=== PATIENT | female | born 1955 | race Caucasian/White ===

== ENCOUNTER → 2016-07-29 | Outpatient (CLI) | payer BC ==
[~2016-07-29] MED LIST: AMIT25TA19 PO; ASPCH81X PO; CHOLTAB3 PO; ELQ25 PO; FERR324T PO; PRLSR20 PO; SACC250C11 PO; TRIA37.5 PO; WARF6TAB PO; [UNRECOGNIZED DRUG - CODE] PO
[2016-07-29 18:13] LABS: INR 2.1 (0.9-1.1); PROTHROMBIN TIME (PATIENT) 23.4 SECONDS (9.0-12.0)
== END | disposition home or self-care (01) ==
LOC: C.LABPBG 12:48
PROVIDERS: ATTEND Internal Medicine Geriatric Medicine
DX: Z86.711 Personal history of pulmonary embolism (principal)

== ENCOUNTER → 2016-11-03 | Outpatient (CLI) | payer BC | END | disposition home or self-care (01) | LOC: C.PAPS 13:51 | PROVIDERS: ATTEND Obstetrics & Gynecology | DX: R87.810 Cervical high risk human papillomavirus (HPV) DNA test positive (principal) ==

== ENCOUNTER → 2017-01-17 | Outpatient (CLI) | payer BC ==
[2017-01-17 18:08] LABS: URINE APPEARANCE CLOUDY (CLEAR); URINE BILIRUBIN NEG (NEG); URINE COLOR YELLOW; URINE EPITHELIAL CELL AUTO >30 /lpf (0-5); URINE NITRITE NEG (NEG); URINE PH 5.5 (4.5-7.5); URINE SPECIFIC GRAVITY 1.021 (1.000-1.030); UROBILINOGEN NEG (NEG)
[2017-01-17 18:15] LABS: MANUAL MICROSCOPIC REQUIRED? NO; REVIEW REQ? NO
== END | disposition home or self-care (01) ==
LOC: C.LABPBG 11:22
PROVIDERS: ATTEND Internal Medicine Geriatric Medicine
DX: R35.0 Frequency of micturition (principal)

== ENCOUNTER → 2017-02-10 | Outpatient (CLI) | payer BC ==
[2017-02-10 13:10] VITALS: BP 99/70; PULSE 79; TEMP 36.7; O2SAT 96
--- NOTE | 2017-02-10 15:16 | Radiation Oncology Follow-Up ---
Radiation Oncology Follow-Up Date of Visit Feb 10, 2017. Reason For Visit Annual follow-up Radiation Completion Date FINISHED 06-02-2012 Diagnosis (1) CA IN SITU BREAST Status: Resolved Onset Date: 01/24/2012 Location: right breast Stage: 0 Permanent Comment: Abnormal right breast mammogram Status post stereotactic biopsy revealing atypical ductal hyperplasia Status post bilateral partial mastectomy feeling atypical ductal hyperplasia on the left and DCIS on the right Status post bilateral reduction mammoplasty with wide excision of lumpectomy site 03/06/2012 residual DCIS 6 mm Status post completion of radiation therapy to the right breast completed 2011 received 5040 cGy 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 Rios is a 61-year-old white female who is referred here for adjuvant XRT to the right breast for DCIS. Her history dates back to October 2011 when she was found to having abnormality right breast. Biopsy turned out to be atypical ductal hyperplasia versus low-grade ductal carcinoma in situ. The patient was subsequently evaluated at [place] where the stereotactic biopsy performed at [facility] are reviewed and felt to be focal atypical ductal hyperplasia. On 01/24/2012 she had a bilateral partial mastectomies corresponding to the mammographic abnormalities. The pathology turned out to be atypical ductal hyperplasia of the left breast, negative for malignancy. Over the right breast the findings are consistent with ductal carcinoma in situ intermediate grade with tumor present at the lateral margin and less than 1 mm from the posterior and medial margins. Separate area of left nodule turned out to be once again ductal hyperplasia. The patient had a MRI of the both breasts on 02/09/2012 with the pathology revealing nodular enhancement along the margins of the surgical bed felt to be consistent with patient's known DCIS and a surgical consult was ordered. There was also nodular enhancement along the margins of the surgical bed over the left breast which was suspicious. Because of the above findings, the patient underwent bilateral reduction mammoplasties and wider excision of the lumpectomy site. This was performed on 03/06/2012 and was residual DCIS of 6 mm. The left side failed to reveal any evidence of malignancy. The patient did well postoperatively and is now seen today for opinion regarding adjuvant XRT to the right breast. She completed radiation therapy 06/02/2012. She received 5040 cGy. She did not require boost therapy due to the mammoplasty. Interim History She's been doing well over this past year. She has noticed no changes to her breast. She has noted no masses or tenderness and no change of the axilla. She 's had no swelling of her arm. She is up-to-date on mammography. She is seen regularly by her breast surgeon and has mammography in [place]. She was unable to take tamoxifen due to DVT with pulmonary emboli. She continues follow-up with medical oncology. She had a mammogram 12/14/2016. There was no mammographic evidence of malignancy. One year follow-up was recommended. BI- RADS Category 2. Allergies Coded Allergies: Penicillins (Verified Allergy, Severe, RASH, 02/05/16) Home Medications Scheduled Amitriptyline Hcl (Amitriptyline), 25 MG PO HS Apixaban (Eliquis), 2.5 MG PO BID Ergocalciferol (Vitamin D), 400 INTER.UNIT PO DAILY Ferrous Gluconate (Iron Supplement), 324 MG PO DAILY Omeprazole (Prilosec Otc *), 20 MG PO DAILY Saccharomyces Boulardii (Probiotic), 1 MG PO DAILY Toremifene Citrate (Fareston), 1 TAB PO DAILY Triamterene/Hctz (Dyazide 37.5MG/25MG), 1 TAB PO DAILY Review of Systems Gastrointestinal: Symptoms: WNL Oral: Symptoms: No Problems Respiratory: Symptoms: WNL Other Respiratory: " I have a cold " Urinary: Symptoms: WNL Comments: had a UTI a few weeks ago, finished meds OK now " Skin: Symptoms: No Problems Other Skin Symptoms: right upper arm area of erythema pt noted when changed into pt gown Breast: Right Upper Arm Measurement: 39.0 Right Mid Arm Measurement: 24.0 Right Wrist Measurement: 15.5 Left Upper Arm Measurement: 36.0 Left Mid Arm Measurement: 24.0 Left Wrist Measurement: 15.3 Arm Dominence: Right Patient Cosmetic Evaluation: Excellent Staff Cosmetic Evalaluation: Excellent Physical Exam Vital Signs Date Time Temp Pulse Resp B/P (MAP) Pulse Ox O2 Delivery O2 Flow Rate FiO2 02/10/17 13:10 36.7 79 20 99/70 96 Pain: Pain Onset: one month Pain Duration: intermet Side: Bilateral Pain Location: Abdomen Patient Pain Scale: 0 - 10 Initial Pain Intensity: 0.0 Pain Description: Sharp, Pressure Fatigue: None General Appearance: no apparent distress Eyes: normal inspection, EOMI ENT: normal ENT inspection, hearing grossly normal Neck: no adenopathy, thyroid normal Respiratory/Chest: lungs clear, no respiratory distress, no accessory muscle use Breast: Status post bilateral mastopexy. Nipples are absent. No masses or tenderness and no axillary adenopathy. She has no skin retractions or telangiectasia. Using the Steele score cosmesis she has a in excellent outcome. Cardiovascular: regular rate, rhythm, no gallop, no murmur Extremities: no pedal edema Neurologic/Psychiatric: no motor/sensory deficits, alert, normal mood/affect Skin: warm/dry Laboratory Studies Test 01/17/17 11:26 Urine Color YELLOW Urine Appearance CLOUDY (CLEAR) Urine pH 5.5 (4.5-7.5) Urine Specific [place] 1.021 (1.000-1.030) Urine Protein NEG (NEG) Urine Glucose (UA) NEG (NEG) Urine Ketones NEG (NEG) Urine Occult Blood TRACE (NEG) Urine Nitrite NEG (NEG) Urine Bilirubin NEG (NEG) Urine Urobilinogen NEG (NEG) Urine Leukocyte Esterase MODERATE (NEG) Urine WBC (Auto) >30 /hpf (0-5) Urine RBC (Auto) 0-4 /hpf (0-4) Urine Hyaline Casts (Auto) 1-5 /lpf (0-5) Urine Epithelial Cells (Auto) >30 /lpf (0-5) Urine Bacteria (Auto) 2+ (NEG) Assessment & Plan Plan: Continue annual mammography and follow-up visits at [place]. Continue regular follow-up with her primary care physician and medical oncology. A follow-up appointment with our office was not given. She may call if she has any questions or concerns we'll be happy to see her. Total Time In Follow-Up I spent 20 minutes speaking to the patient performing examination. I sent 15 minutes reviewing information in completing this note. Copy To Miguel Bingham D.O.; Morris Strange M.D.; Delilah Cooper M.D.
== END | disposition home or self-care (01) ==
LOC: C.ONC 13:00
PROVIDERS: ATTEND Physician Assistant Medical
DX: Z08 Encounter for follow-up examination after completed treatment for malignant neoplasm (principal); Z92.3 Personal history of irradiation; Z85.3 Personal history of malignant neoplasm of breast

== ENCOUNTER → 2017-02-21 | Outpatient (CLI) | payer BC ==
[~2017-02-21] MED LIST changes: -ASPCH81X PO; -WARF6TAB PO
[2017-02-21 17:33] LABS: BASO % 0.4 %; BASO ABS # 0.02 K/uL (0-0.2); COMPLETE YES; EOS % 2.4 %; IG% 0.2 %; LYMPH % 26.9 %; LYMPH ABS # 1.35 K/uL (1.2-3.4); MEAN CELL VOLUME 84.2 fL (80-100); MEAN CORPUSCULAR HEMOGLOBIN 27.2 pg (25-34); MEAN CORPUSCULAR HGB CONC 32.3 g/dl (32-36); MEAN PLATELET VOLUME 9.3 fL (7.4-10.4); NEUT % 64.1 %; PLATELET COUNT 194 K/uL (130-400); RED BLOOD COUNT 4.75 M/uL (4.2-5.4); WHITE BLOOD COUNT 5.02 K/uL (4.8-10.8)
[2017-02-21 17:44] LABS: ALT/SGPT 20 U/L (12-78); BLOOD UREA NITROGEN 14 mg/dl (7-18); BUN/CREATININE RATIO 12.6 (10-20); CALCIUM 9.1 mg/dl (8.5-10.1); CARBON DIOXIDE 29 mmol/L (21-32); CHLORIDE 101 mmol/L (98-107); CHOLESTEROL 179 mg/dl (0-200); GLUCOSE 117 mg/dl (70-99); POTASSIUM 3.2 mmol/L (3.5-5.1); SODIUM 141 mmol/L (136-145); TRIGLYCERIDES 180 mg/dl (0-150); VERY LOW DENSITY LIPOPROT CALC 36 mg/dl
[2017-02-21 17:55] LABS: ALKALINE PHOSPHATASE 91 U/L (45-117); AST/SGOT 19 U/L (15-37); CHOLESTEROL/HDL RATIO 3.2; HDL CHOLESTEROL 56 mg/dl; LDL CHOLESTEROL CALCULATED 87 mg/dl
[2017-02-22 06:04] LABS: ESTIMATED AVERAGE GLUCOSE 123 mg/dl; HA1C FLAG Normal (Normal)
== END | disposition home or self-care (01) ==
LOC: C.LABPBG 11:40
PROVIDERS: ATTEND Internal Medicine Geriatric Medicine
DX: I10 Essential (primary) hypertension (principal); N20.0 Calculus of kidney; G47.30 Sleep apnea, unspecified; E55.9 Vitamin D deficiency, unspecified; Z79.01 Long term (current) use of anticoagulants; G43.909 Migraine, unspecified, not intractable, without status migrainosus; Z68.43 Body mass index [BMI] 50.0-59.9, adult; M85.80 Other specified disorders of bone density and structure, unspecified site

== ENCOUNTER → 2017-07-06 | Day surgery (SDC) | payer BC, OTHER ==
[2017-06-20 09:24] VITALS: Ht 154.9 cm; Wt 111.4 kg
[~2017-07-06] VITALS: Ht 154.9 cm; Wt 111.4 kg
[~2017-07-06] MED LIST changes: -AMIT25TA19 PO; +AMIT25TA9 PO; +CHOL100010 PO; -CHOLTAB3 PO; +ENDOSCOPIC MARKER 5 ML SYR ONE; +LIDOCAINE HCL 2% 2 ML VIAL (20MG/ML) ONE; +MIDAZOLAM HCL 1 MG/ML 2ML VIAL ONE; +ONDANSETRON INJ 2 MG/ML 2 ML VIAL ONE; +PROB1TAB16 PO; +PROPOFOL IV EMULSION 10 MG/ML 20 ML VIAL IV ONE; -SACC250C11 PO; +SODIUM CHLORIDE 0.9% 500ML 500 ML IV ONE
--- NOTE | 2017-07-06 08:45 | Endo History and Physical ---
History & Physical Date of Service: Jul 06, 2017. Chief Complaint: Screening Referring Physician: Morris Strange History of Present Illness 61 yo CF who presents for screening colonoscopy. Past Surgical History Hx Cardiac Surgery: No Hx Internal Defibrillator: No Hx Pacemaker: No Hx Abdominal Surgery: Yes (TUBAL LIGATION, , SALAZAR) Hx of Implantable Prosthesis: No Hx Post-Op Nausea and Vomiting: Yes Hx Cancer Surgery: Yes (SKIN LESION REMOVALS, LT/RT BREAST PARTIAL MASTECTOMY) Hx Thoracic Surgery: No Hx Orthopedic: No Hx Urinary Tract Surgery: Yes (LITHOTRIPSY AND LASER LITHOTRIPSY) Family History None Social History Smoking Status: Never Smoker Hx Substance Use: No Hx Alcohol Use: No Allergies Coded Allergies: Penicillins (Verified Allergy, Severe, RASH, 06/20/17) Current Medications Reported Home Medications Medications Dose Route/Sig Max Daily Dose Days Date Category Probiotic (Probiotic Product) 1 Tab Tab 1 Tab PO QPM 06/20/17 Reported Elavil (Amitriptyline Hcl) 25 Mg Tab 25 Mg PO HS 06/20/17 Reported Prilosec (Omeprazole) 20 Mg Capcr 20 Mg PO QPM 06/20/17 Reported Vitamin D (Cholecalciferol) 1,000 Unit Tab 1 Tab PO QPM 06/20/17 Reported Eliquis (Apixaban) 2.5 Mg Tab 2.5 Mg PO BID 02/10/17 Reported Iron Supplement (Ferrous Gluconate) 324 Mg Tab 324 Mg PO DAILY 09/02/14 Reported Fareston (Toremifene Citrate) 60 Mg Tab 1 Tab PO QPM 02/06/14 Reported Dyazide 37.5MG/25MG (Triamterene/HCTZ) Cap 1 Tab PO QAM 04/06/12 Reported Vital Signs Weight (Kilograms): 111.36 Height (Feet): 5 Height (Inches): 1 Physical Exam General Appearance: WD/WN, no apparent distress Respiratory/Chest: Auscultation: breath sounds normal Cardiovascular: Heart Auscultation: RRR Abdomen: Bowel Sounds: normal Inspection & Palpation: soft, non-distended, no tenderness, guarding & rebound Assessment and Plan Assessment: 61 yo CF who presents for screening colonoscopy. Plan: Proceed with colonoscopy.
--- NOTE | 2017-07-06 09:52 | Discharge Instructions ---
Endoscopy Patient Instructions Date / Procedure(s) Performed Jul 06, 2017. Colonoscopy Allergy Information Coded Allergies: Penicillins (Verified Allergy, Severe, RASH, 06/20/17) Discharge Date / Findings Jul 06, 2017. Colon polyps Diverticulosis Internal hemorrhoids Medication Instructions Stopped Medication(s): Eliquis, Iron 1) Resume Eliquis tomorrow 2) OK to resume all other medications today as prescribed Reported Home Medications Medications Dose Route/Sig Max Daily Dose Days Date Category Probiotic (Probiotic Product) 1 Tab Tab 1 Tab PO QPM 06/20/17 Reported Elavil (Amitriptyline Hcl) 25 Mg Tab 25 Mg PO HS 06/20/17 Reported Prilosec (Omeprazole) 20 Mg Capcr 20 Mg PO QPM 06/20/17 Reported Vitamin D (Cholecalciferol) 1,000 Unit Tab 1 Tab PO QPM 06/20/17 Reported Eliquis (Apixaban) 2.5 Mg Tab 2.5 Mg PO BID 02/10/17 Reported Iron Supplement (Ferrous Gluconate) 324 Mg Tab 324 Mg PO DAILY 09/02/14 Reported Fareston (Toremifene Citrate) 60 Mg Tab 1 Tab PO QPM 02/06/14 Reported Dyazide 37.5MG/25MG (Triamterene/HCTZ) Cap 1 Tab PO QAM 04/06/12 Reported Provider Instructions Activity Restrictions - No exercising or heavy lifting for 24 hours. - Do not drink alcohol the day of the procedure. - Do not drive a car or operate machinery until the day after the procedure. - Do not make any important decisions or sign important papers in 24 hours after the procedure. Following Day: - Return to full activity which may include returning to work/school. Diet Start your diet with liquids and light foods (jello, soup, juice, toast). Then eat your usual diet if not nauseated. Treatment For Common After Affects For mild abdominal pain, bloating, or excessive gas: - Rest - Eat lightly - Lie on right side Follow-Up Information Follow-up with Morris Strange as scheduled Anesthesia Information What You Should Know You have had a procedure that required some medicine to reduce anxiety and discomfort. This treatment is called moderate sedation. After receiving the treatment, you may be sleepy, but you will be able to breathe on your own. The effects of the treatment may last for several hours. Follow these instructions along with Activity/Diet recommendations noted above: * Do NOT do anything where dizziness or clumsiness would be dangerous. * Rest quietly at home today, then you can be up and about tomorrow. * Have a responsible person stay with you the rest of today. * You may have had an I.V. today. If so, you may take the dressing off later today. Recommendations Call your doctor if: * Trouble breathing * Continuous vomiting for more than 24 hours * Temperature above 101 degrees * Severe abdominal pain or bloating * Pain not relieved by pain medicine ordered * There is increased drainage or redness from any incision * A large amount of rectal bleeding greater than 2-3 tablespoons. (If you had a polyp/s removed or have hemorrhoids, a small amount of blood - from the rectum is to be expected.) * You have any unanswered questions or concerns. IN THE EVENT OF A SERIOUS EMERGENCY, GO TO THE NEAREST EMERGENCY ROOM Your discharge instructions were prepared by provider Atul Tariq. Patient Instructions Signature Page Karlee Rios Patient (or Guardian) Signature/Date: I have read and understand the instructions given to me by my caregivers. Caregiver/RN/Doctor Signature/Date: The above-named patient and/or guardian has received patient instructions on this date. + Original Patient Signature Page (only) stays with chart. Please make copy for patient.
--- NOTE | 2017-07-06 10:07 | GI REPORT ---
Procedure Date: 07/06/2017 9:23 AM Procedure: Colonoscopy Indications: Screening for colorectal malignant neoplasm Medicines: Monitored Anesthesia Care Complications: No immediate complications. Estimated Blood Loss: Estimated blood loss: none. Procedure: Pre-Anesthesia Assessment: - Prior to the procedure, a History and Physical was performed, and patient medications and allergies were reviewed. The patient's tolerance of previous anesthesia was also reviewed. The risks and benefits of the procedure and the sedation options and risks were discussed with the patient. All questions were answered, and informed consent was obtained. Prior Anticoagulants: The patient has taken Eliquis (apixaban), last dose was 3 days prior to procedure. ASA Grade Assessment: III - A patient with severe systemic disease. After reviewing the risks and benefits, the patient was deemed in satisfactory condition to undergo the procedure. After I obtained informed consent, the scope was passed under direct vision. Throughout the procedure, the patient's blood pressure, pulse, and oxygen saturations were monitored continuously. The scope was introduced through the anus and advanced to the terminal ileum. The colonoscopy was performed without difficulty. The patient tolerated the procedure well. The quality of the bowel preparation was good. The terminal ileum, ileocecal valve, appendiceal orifice, and rectum were photographed. Findings: The perianal and digital rectal examinations were normal. Two sessile polyps were found in the ascending colon and cecum. The polyps were 4 to 7 mm in size. These polyps were removed with a hot snare. Resection and retrieval were complete. A 30 mm polyp was found in the sigmoid colon. The polyp was pedunculated. Biopsies were taken with a cold forceps for histology. Area was tattooed with an injection of 5 mL of Leatha ink at the proximal and distal margin. Multiple small-mouthed diverticula were found in the sigmoid colon. Non-bleeding internal hemorrhoids were found during retroflexion. The hemorrhoids were small. Impression: - Two 4 to 7 mm polyps in the ascending colon and in the cecum, removed with a hot snare. Resected and retrieved. - One 30 mm polyp in the sigmoid colon. Biopsied. Tattooed. - Diverticulosis in the sigmoid colon. - Non-bleeding internal hemorrhoids. Recommendation: - Resume previous diet. - Continue present medications. - Repeat colonoscopy for surveillance based on pathology results. - Return to primary care physician as previously scheduled. Atul Tariq DO 07/06/2017 10:05:46 AM This report has been signed electronically. Note Initiated On: 07/06/2017 9:23 AM I attest to the content of the Intraoperative Record and orders documented therein, exceptions below
[2017-07-06 10:21] VITALS: BP 156/63; PULSE 70; O2SAT 97
--- NOTE | 2017-07-06 10:24 | Anesthesiology Progress Note ---
Anesthesia Post Op Note Date & Time Jul 06, 2017 at 10:24 Vital Signs Pain Intensity: 0 Vital Signs Past 12 Hours Date Time Temp Pulse Resp B/P (MAP) Pulse Ox O2 Delivery O2 Flow Rate FiO2 07/06/17 10:06 70 18 167/95 (119) 96 Room Air 07/06/17 09:51 72 16 155/62 (93) 98 Room Air 07/06/17 08:56 36.8 90 20 146/87 (106) 96 Room Air Notes Mental Status: alert / awake / arousable, participated in evaluation Pt Amnestic to Procedure: Yes Nausea / Vomiting: adequately controlled Pain: adequately controlled Airway Patency, RR, SpO2: stable & adequate BP & HR: stable & adequate Hydration State: stable & adequate Anesthetic Complications: no major complications apparent
== END | disposition home or self-care (01) ==
LOC: C.GI 08:28
PROVIDERS: ATTEND Internal Medicine
DX: Z12.11 Encounter for screening for malignant neoplasm of colon (principal); D12.2 Benign neoplasm of ascending colon; D12.0 Benign neoplasm of cecum; D12.5 Benign neoplasm of sigmoid colon; K57.30 Diverticulosis of large intestine without perforation or abscess without bleeding; K64.8 Other hemorrhoids; G47.33 Obstructive sleep apnea (adult) (pediatric); Z86.711 Personal history of pulmonary embolism; Z88.0 Allergy status to penicillin; Z79.01 Long term (current) use of anticoagulants; Z90.13 Acquired absence of bilateral breasts and nipples; E66.01 Morbid (severe) obesity due to excess calories; Z68.42 Body mass index [BMI] 45.0-49.9, adult; Z98.51 Tubal ligation status

== ENCOUNTER → 2017-07-08 | Outpatient (CLI) | payer OTHER ==
[~2017-07-08] MED LIST changes: -ENDOSCOPIC MARKER 5 ML SYR ONE; -LIDOCAINE HCL 2% 2 ML VIAL (20MG/ML) ONE; -MIDAZOLAM HCL 1 MG/ML 2ML VIAL ONE; -ONDANSETRON INJ 2 MG/ML 2 ML VIAL ONE; -PROPOFOL IV EMULSION 10 MG/ML 20 ML VIAL IV ONE; -SODIUM CHLORIDE 0.9% 500ML 500 ML IV ONE
--- NOTE | 2017-07-08 16:06 | DIAGNOSTIC IMAGING REPORT ---
LEFT HAND 3 VIEWS HISTORY: M79.642 - PAIN IN LEFT HAND COMPARISON: None. FINDINGS: There is no fracture or dislocation. Soft tissues are unremarkable. Moderate osteoarthritis within the DIP joints of the index and middle fingers. Mild osteoarthritis within the remaining DIP, PIP, and STT joints. IMPRESSION: No fracture or dislocation within the left hand. Mild to moderate osteoarthritis as described above. Electronically signed by: Rock Gupta M.D. 07/08/2017 4:05 PM Dictated Date/Time: 07/08/2017 4:01 PM
== END | disposition home or self-care (01) ==
LOC: C.RAD1850 15:35
PROVIDERS: ATTEND Family Medicine
DX: M19.042 Primary osteoarthritis, left hand (principal)

== ENCOUNTER → 2017-08-01 | Outpatient (CLI) | payer OTHER | END | disposition home or self-care (01) | LOC: C.LABPBG 13:05 | PROVIDERS: ATTEND Internal Medicine Gastroenterology | DX: Z01.818 Encounter for other preprocedural examination (principal); D12.6 Benign neoplasm of colon, unspecified ==

== ENCOUNTER → 2017-08-10 | Outpatient (CLI) | payer OTHER ==
[2017-08-10 18:15] LABS: BLOOD UREA NITROGEN 8 mg/dl (7-18); CALCIUM 8.5 mg/dl (8.5-10.1); CARBON DIOXIDE 27 mmol/L (21-32); CREATININE 1.04 mg/dl (0.60-1.20); GLUCOSE 85 mg/dl (70-99); POTASSIUM 3.3 mmol/L (3.5-5.1); SODIUM 141 mmol/L (136-145)
== END | disposition home or self-care (01) ==
LOC: C.LABPBG 15:24
PROVIDERS: ATTEND Internal Medicine Geriatric Medicine
DX: I10 Essential (primary) hypertension (principal)

== ENCOUNTER → 2017-09-22 | Outpatient (CLI) | payer OTHER ==
[2017-09-22 17:36] LABS: BLOOD UREA NITROGEN 16 mg/dl (7-18); CARBON DIOXIDE 31 mmol/L (21-32); CREATININE 1.11 mg/dl (0.60-1.20); GLUCOSE 94 mg/dl (70-99); POTASSIUM 3.3 mmol/L (3.5-5.1); SODIUM 136 mmol/L (136-145)
== END | disposition home or self-care (01) ==
LOC: C.LABPBG 14:24
PROVIDERS: ATTEND Internal Medicine Geriatric Medicine
DX: I10 Essential (primary) hypertension (principal); E87.6 Hypokalemia; Z79.01 Long term (current) use of anticoagulants

== ENCOUNTER 2022-11-18 09:30 | Inpatient (IN) ==
[2022-11-18] MEDS ORDERED: SODIUM CHLORIDE 0.9% 1000ML 1,000 ML IV ONE (09:56)
--- NOTE | 2022-11-18 10:17 | XRay Report ---
XR chest 1V portable CLINICAL HISTORY: Chest pain, nonspecific COMPARISON STUDY: Chest CT January 31, 2014. Chest radiograph February 12, 2015. FINDINGS: Lung volumes are normal. Lungs are clear. There is no pneumothorax or pleural effusion. Car diac size is stable. Mediastinal contours are normal. There is no evidence for pulmonary edema. IMPRESSION: No acute cardiopulmonary findings. ACT 112: Negative or not required by law. Electronically signed by: Trey Tidwell M.D. 11/18/2022 10:16 AM
[2022-11-18 10:19] LABS: Basophils # (auto) 0.02 K/uL (0-0.2); Basophils % (auto) 0.3 %; Eosinophils # (auto) 0.04 K/uL (0-0.50); Eosinophils % (auto) 0.5 %; Hematocrit (blood only) 41.1 % (37.0-47.0); Hemoglobin 13.4 g/dl (12.0-16.0); Immature Granulocytes # (auto) 0.03 K/uL (0.01-0.20); Immature Granulocytes % (auto) 0.4 %; Lymphocytes # (auto) 1.28 K/uL (1.2-3.4); Lymphocytes % (auto) 16.6 %; Mean Corpuscular Hemoglobin 25.5 pg (25.0-34.0); Mean Corpuscular Hgb Conc 32.6 g/dL (32.0-36.0); Mean Corpuscular Volume 78.1 fL (80.0-100.0); Mean Platelet Volume 9.7 fL (9.4-12.4); Monocytes # (auto) 0.53 K/uL (0.11-0.59); Monocytes % (auto) 6.9 %; Neutrophils % (auto) 75.3 %; Platelet Count 203 K/uL (130-400); RDW Coefficient of Variation 14.3 % (11.5-14.5); RDW Standard Deviation 40.3 fL (36.4-46.3); Red Blood Count 5.26 M/uL (4.20-5.40)
[2022-11-18 10:36] LABS: Alanine Aminotransferase 17 U/L (7-52); Albumin Globulin Ratio 1.2 (0.9-2); Alkaline Phosphatase 92 U/L (34-104); Anion Gap 10 (3-11); Aspartate Aminotransferase 20 U/L (13-39); BUN Creatinine Ratio 14.6 (10-20); Bilirubin,Total 0.8 mg/dl (0.2-1.0); Blood Urea Nitrogen 14 mg/dl (6-23); Calcium 9.6 mg/dl (8.6-10.3); Carbon Dioxide 30 mmol/L (21-32); Chloride 98 mmol/L (98-107); Est GFR (African American) 69.9 ml/min; Est GFR (Non-African American) 60.3 ml/min; Globulin 3.3 gm/dl (2.5-4.0); Glucose 131 mg/dl (70-99(Fasting)); Lipase 15 U/L (11-82); Magnesium 1.7 mg/dl (1.7-2.4); Potassium 2.8 mmol/L (3.5-5.1); Sodium 138 mmol/L (136-145); Total Protein 7.3 gm/dl (6.0-8.3)
[2022-11-18] MEDS ORDERED: ALBUT/IPRATROP 3MG/0.5MG NEB 3 ML VIAL NEB STA (10:39)
[2022-11-18] MEDS ORDERED: MAGNESIUM SULFATE / D5W 1 GM/100 ML BAG IV STA (10:41)
--- NOTE | 2022-11-18 10:43 | Emergency Department Note ---
Impression & Plan Bilateral pulmonary embolism, Elevated troponin, History of pulmonary embolism, Dyspnea on minimal exertion ED Provider Note NAME: MEENA GARCIA AGE: 67 SEX: F ARRIVES VIA: Walk-In INFORMANT: Patient ED PROVIDER(S): Matt Holbrook MD CHIEF COMPLAINT: Shortness of breath PLAN: Disposition: Admit MEDICAL DECISION MAKING: The patient is a pleasant 67-year-old woman with a past medical history of hypertension, hyperlipidemia, hypothyroidism, diabetes, remote history of pulmonary embolism while on estrogen therapy for history of breast cancer who presents emergency department via walk-in, accompanied by family for evaluation of worsening shortness of breath with minimal exertion and chest tightness that began abruptly in severity last night and reports feeling short of breath with even walking. The patient reports that she has felt some very mild shortness of breath with exertion over the past several months after traveling to [place] by car but had attributed this to "being out of shape" and did not have any significant shortness of breath until last night. Of note, the patient was seen in this emergency department on 11/08 for symptoms of gastroenteritis where she was diagnosed with rotavirus on PCR testing. She reports her symptoms from this have improved/resolved. Otherwise, subsequently she denies any fevers, significant cough or congestion, GI or symptoms. Of note, the patient's daughter did have a pulmonary embolism as well which was attributed to being on control at the time. Both her daughter and the patient did have genetic testing for hypercoagulability but this was 10 years ago and to their knowledge was negative. On arrival to the emergency department the patient is in no acute distress, afebrile with heart rate in the upper 90s and O2 saturation 93% on room air with normal respiratory effort. Lungs are relatively clear. EKG demonstrates sinus tachycardia 106, left anterior fascicular block, ST and T wave abnormality laterally and otherwise no overt ST elevation, QTc 475, QRS 84. WBC within normal limits. H/H and platelets within normal limits. INR 1.0, within normal limits. Chemistry without metabolic acidosis. Potassium 2.8 with repletion provided. Magnesium 1.7, low normal with IV repletion provided. LFTs unremarkable. Initial high-sensitivity troponin 505 which further raises suspicion for PE given patient's history. CT of the chest was ordered on initial evaluation due to concern for this possibility and did demonstrate extensive pulmonary emboli involving the left lower lobe and right middle lobe and lower lobar branches as well as numerous segments of mental branches. Note is made of CT evidence of right heart strain where there is enlargement of the right ventricle and flattening of the intraventricular septum. I did perform a limited bedside cardiac ultrasound that similarly demonstrates evidence of right heart strain with dilated RV and bulging of IVS into the LV. Notably the patient remained hemodynamically stable with heart rate in the 90s and blood pressures 130s-140s/70s-80s and O2 saturation 90% and greater on room air with normal respiratory effort. I did review the patient's findings with her and her family at the bedside and discussed that given there is evidence of right heart strain evidenced by her elevated high-sensitivity troponin and imaging and limited cardiac ultrasound findings consideration of systemic thrombolysis is entertained. We did review the risks and benefits of this treatment and they did report that they feel the patient does have a history of easily bruising in the past. Further we did acknowledge that the patient remained hemodynamically stable and did not feel as though she needs worsening and now a. Given this joint decision making we agreed to defer systemic thrombolysis we will proceed with systemic anticoagu lation. Case was d/w Dr. Ornelas [facility] hospitalist who will evaluate the patient for admission. We agreed to proceed with treatment with IV heparin at this time. Further management per admitting team. Triage Nursing notes reviewed and agree them. Prior/outside medical records reviewed Vital Signs: reviewed Differential diagnosis: Reactive airway disease, pneumonia, pneumothorax, COPD, CHF, infections, cardiac ischemia, pulmonary embolism, musculoskeletal, gastrointestinal, as well as other pathologies. ER treatment provided: See below. Diagnostics interpreted by me: ECG: Sinus tachycardia, 106 bpm, no ectopy, left anterior fascicular block, ST and T wave abnormality laterally and otherwise no overt ST elevation, QTc 475, QRS 84. Cardiac Monitoring: An order for continuous cardiac monitoring was placed and d emonstrated sinus tachycardia, 106 bpm, no ectopy. Laboratory studies: See below Imaging studies: See below Consultation(s): Case was d/w Dr. Ornelas [facility] hospitalist who will evaluate the patient for admission. HPI: The patient is a pleasant 67-year-old woman with a past medical history of hypertension, hyperlipidemia, hypothyroidism, diabetes, remote history of pulmonary embolism while on estrogen therapy for history of breast cancer who presents emergency department via walk-in, accompanied by family for evaluation of worsening shortness of breath with minimal exertion and chest tightness that began abruptly in severity last night and reports feeling short of breath with even walking. The patient reports that she has felt some very mild shortness of breath with exertion over the past several months after traveling to [place] by car but had attributed this to "being out of shape" and did not have any significant shortness of breath until last night. Of note, the patient was seen in this emergency department on 11/08 for symptoms of gastroenteritis where she was diagnosed with rotavirus on PCR testing. She reports her symptoms from this have improved/resolved. Otherwise, subsequently she denies any fevers, significant cough or congestion, GI or symptoms. Of note, the patient's daughter did have a pulmonary embolism as well which was attributed to being on control at the time. Both her daughter and the patient did have genetic testing for hypercoagulability but this was 10 years ago and to their knowledge was negative. ROS: See above HPI for pertinent positives & negatives. A total of 10 systems reviewed and were otherwise negative. VITALS:See Below PHYSICAL EXAMINATION: GENERAL: Awake, alert, fatigued but well-appearing, in no distress, BMI 41.8. HENT: Normocephalic, atraumatic. Oropharynx with dry mucous membranes and otherwise unremarkable. EYES: Normal conjunctiva. Sclera non-icteric. NECK: Supple. No nuchal rigidity. FROM. No JVD. RESPIRATORY: Clear to auscultation. CARDIAC: Regular rate, normal rhythm. Extremities warm and well perfused. Pulses equal. ABDOMEN: Soft, non-distended. No tenderness to palpation. No rebound or guarding. No masses. RECTAL: Deferred. MUSCULOSKELETAL: Chest examination reveals no tenderness. The back is symmetrical on inspection without obvious abnormality. There is no CVA tenderness to palpation. No joint edema. LOWER EXTREMITIES: Calves are equal size bilaterally and non-tender. No edema. No discoloration. NEURO: Normal sensorium. No sensory or motor deficits noted. SKIN: No rash or jaundice noted. ED COURSE: Critical Care: I have personally spent greater than 45 minutes of critical care time in the direct management of this patient. This includes bedside care, interpretation of diagnostic studies, and testing, discussion with consultants, patient, and family members, and other required patient management activities. This 45 minutes is in excess of all separately billable procedures. 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) Calculus of ureter (01/10/13) Cervical cancer screening Dyslipidemia GERD (gastroesophageal reflux disease) Headache, migraine reason for amitriptyline Hepatic steatosis History of breast cancer 01/2012--right breast--sx/chemo/radiation History of Clostridium difficile colitis History of pulmonary embolism 2011--d/t chemo medication, put on coumadin/then eliquis--off meds 2 yrs ago Hypertension Iron deficiency Irritable bowel syndrome (IBS) Melanoma of nose hx of, removed in office Nausea and vomiting after administration of anesthetic agent Nephrolithiasis Osteopenia Prediabetes Sleep apnea cpap Splenic artery aneurysm (01/10/13) Tubular adenoma of colon Vitamin D deficiency Surgical History H/O lithotripsy History of bilateral tubal ligation History of breast biopsy bilt--malignant on right History of cholecystectomy History of colonoscopy with polypectomy 07/2017--had large "fatty tissue" polyp [place] [facility] of gynecologic surgery D&E History of tonsillectomy and adenoidectomy S/P section x 2 S/P dilatation and curettage S/P mastectomy, bilateral (03/2012) with breast reconstruction Status post laser lithotripsy of ureteral calculus Family History Father , d/t [place] age 49 Coronary heart disease Myocardial infarction, Onset Age: 49 Mother Coronary heart disease Myocardial infarction, Onset Age: 74 Sister Family history of reaction to anesthesia nausea Other Heart disease No family history of adverse response to anesthesia No family history of bleeding disorder Denies family history of Ovarian cancer Prostate cancer Breast cancer Colorectal cancer Social History Smoking Status: Never smoker Second Hand Exposure: No; Do You Dip or Chew Tobacco: No; Tobacco Cessation Education Requested by Patient: No Hx Alcohol Use: Yes Alcohol type: wine Hx Substance Use: No Preferred Language: Latvian Communication Ability: Effective Visual Impairment: No Limitations Hearing Ability: Normal 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 current occupational status: unemployed How many Children do You have: 2 Other Information That Helps Us Care for You: No Feels Safe at Home: Yes Safety Concerns: Feels Safe At This Time Childhood Exposure to Second-Hand Smoke: No Diet: regular caffeine: Yes (Soda x 1 per day.) during the past year weight has: decreased > 10 lbs Dental Care, Regularly: Yes Physical Activity Frequency: Daily Seatbelt Use: always Sunscreen Use: Yes Assistive Devices: Glasses Allergies Allergies Allergy/AdvReac Type Severity Reaction Status Date / Time amoxicillin Allergy Mild ? rash Verified 11/18/22 13:18 Penicillins Allergy Mild RASH Verified 11/18/22 13:18 Home Meds Home Medications Medication Instructions Recorded Confirmed Lactobacillus 1 cap PO QAM 11/18/18 11/18/22 acidophilus-Bifidobac.animalis 31 billion cell capsule cholecalciferol (vitamin D3) 75 3,000 units PO QAM 11/18/18 11/18/22 mcg (3,000 unit) tablet ferrous sulfate 325 mg (65 mg 325 mg PO BID 11/18/18 11/18/22 iron) tablet loperamide 2 mg tablet (Imodium 2 mg PO Q6H PRN Gi Upset 10/29/21 11/18/22 A-D) Previous Rx's Medication Instructions Recorded potassium chloride 20 mEq 20 meq PO TID #540 tabs 11/27/20 tablet,extended release(part/cryst) amitriptyline 25 mg tablet 25 mg PO HS #90 tabs 12/08/21 omeprazole 20 mg capsule,delayed 20 mg PO QPM #90 caps 06/21/22 release triamterene 37.5 1 cap PO QAM #90 caps 06/21/22 mg-hydrochlorothiazide 25 mg capsule albuterol sulfate 90 mcg/actuation 2 puff inhalation Q6H PRN 09/02/22 aerosol inhaler shortness of breath or wheezing #18 grams Results & Data (ED) Vital Signs Vital Signs - 24 hr 11/18/22 09:33 11/18/22 09:46 11/18/22 09:53 Temperature 37.2 C Temperature Source Oral Pulse Rate 99 H 101 H 100 H Pulse Rate from SpO2 Sensor 102 H Pulse Rhythm Regular Pulse Strength Normal Respiratory Rate 22 18 Respiratory Effort / Characteristics Non-Labored Spontaneous Respiratory Depth Normal Respiratory Pattern Regular Blood Pressure 145/84 H 143/87 H Blood Pressure Mean 104 105 Blood Pressure Position Sitting Pulse Oximetry 93 92 Oxygen Delivery Method Room Air Sepsis Recent Fever Within 48 Hours No Sepsis New/Unexplained Change in Mental Status No Sepsis Action Taken by Nursing No Action Required 11/18/22 10:03 11/18/22 10:04 11/18/22 10:00 Temperature Temperature Source Pulse Rate Pulse Rate from SpO2 Sensor Pulse Rhythm Pulse Strength Respiratory Rate Respiratory Effort / Characteristics Respiratory Depth Respiratory Pattern Blood Pressure 139/74 Blood Pressure Mean 95 Blood Pressure Position Pulse Oximetry 93 93 Oxygen Delivery Method Room Air Room Air Sepsis Recent Fever Within 48 Hours Sepsis New/Unexplained Change in Mental Status Sepsis Action Taken by Nursing 11/18/22 10:00 11/18/22 10:30 Temperature Temperature Source Pulse Rate 99 H 93 H Pulse Rate from SpO2 Sensor 99 H 93 H Pulse Rhythm Pulse Strength Respiratory Rate 23 22 Respiratory Effort / Characteristics Respiratory Depth Respiratory Pattern Blood Pressure Blood Pressure Mean Blood Pressure Position Pulse Oximetry 92 92 Oxygen Delivery Method Room Air Sepsis Recent Fever Within 48 Hours Sepsis New/Unexplained Change in Mental Status Sepsis Action Taken by Nursing Laboratory Data Attestation: I reviewed the patient's lab results. 11/18/22 09:55 11/18/22 09:55 Lab Results 11/18/22 11/18/22 11/18/22 Range/Units 09:55 09:55 09:55 WBC 7.70 (4.8-10.8) K/ul RBC 5.26 (4.20-5.40) M/uL Hgb 13.4 (12.0-16.0) g/dl Hct 41.1 (37.0-47.0) % MCV 78.1 L (80.0-100.0) fL MCH 25.5 (25.0-34.0) pg MCHC 32.6 (32.0-36.0) g/dL RDW Std Deviation 40.3 (36.4-46.3) fL RDW Coeff of Abiola 14.3 (11.5-14.5) % Plt Count 203 (130-400) K/uL MPV 9.7 (9.4-12.4) fL Immature Gran % (Auto) 0.4 % Neut % (Auto) 75.3 % Lymph % (Auto) 16.6 % Phillips % (Auto) 6.9 % Eos % (Auto) 0.5 % Baso % (Auto) 0.3 % Neut # (Auto) 5.80 (1.40-6.50) K/uL Lymph # (Auto) 1.28 (1.2-3.4) K/uL Phillips # (Auto) 0.53 (0.11-0.59) K/uL Eos # (Auto) 0.04 (0-0.50) K/uL Baso # (Auto) 0.02 (0-0.2) K/uL Immature Gran # (Auto) 0.03 (0.01-0.20) K/uL PT 11.0 (9.0-12.0) Seconds INR 1.0 (0.9-1.1) APTT 25.4 (21.0-31.0) Seconds PTT Ratio 0.9 Sodium 138 (136-145) mmol/L Potassium 2.8 L (3.5-5.1) mmol/L Chloride 98 (98-107) mmol/L Carbon Dioxide 30 (21-32) mmol/L Anion Gap 10 (3-11) BUN 14 (6-23) mg/dl Creatinine 0.96 (0.6-1.2) mg/dl Est Cr Clr Drug Dosing Not Reportable Est GFR ( Amer) 69.9 ml/min Est GFR (Non-Af Amer) 60.3 ml/min BUN/Creatinine Ratio 14.6 (10-20) Glucose 131 H (70-99(Fasting)) mg/dl Calcium 9.6 (8.6-10.3) mg/dl Magnesium 1.7 (1.7-2.4) mg/dl Total Bilirubin 0.8 (0.2-1.0) mg/dl AST 20 (13-39) U/L ALT 17 (7-52) U/L Alkaline Phosphatase 92 (34-104) U/L Troponin I High Sens 505.1 H* (0-14) pg/ml Total Protein 7.3 (6.0-8.3) gm/dl Albumin 4.0 (3.4-5.0) gm/dl Globulin 3.3 (2.5-4.0) gm/dl Albumin/Globulin Ratio 1.2 (0.9-2) Lipase 15 (11-82) U/L SARS-CoV-2, RNA, NAAT (NEGATIVE) 11/18/22 Range/Units 12:57 WBC (4.8-10.8) K/ul RBC (4.20-5.40) M/uL Hgb (12.0-16.0) g/dl Hct (37.0-47.0) % MCV (80.0-100.0) fL MCH (25.0-34.0) pg MCHC (32.0-36.0) g/dL RDW Std Deviation (36.4-46.3) fL RDW Coeff of Abiola (11.5-14.5) % Plt Count (130-400) K/uL MPV (9.4-12.4) fL Immature Gran % (Auto) % Neut % (Auto) % Lymph % (Auto) % Phillips % (Auto) % Eos % (Auto) % Baso % (Auto) % Neut # (Auto) (1.40-6.50) K/uL Lymph # (Auto) (1.2-3.4) K/uL Phillips # (Auto) (0.11-0.59) K/uL Eos # (Auto) (0-0.50) K/uL Baso # (Auto) (0-0.2) K/uL Immature Gran # (Auto) (0.01-0.20) K/uL PT (9.0-12.0) Seconds INR (0.9-1.1) APTT (21.0-31.0) Seconds PTT Ratio Sodium (136-145) mmol/L Potassium (3.5-5.1) mmol/L Chloride (98-107) mmol/L Carbon Dioxide (21-32) mmol/L Anion Gap (3-11) BUN (6-23) mg/dl Creatinine (0.6-1.2) mg/dl Est Cr Clr Drug Dosing Est GFR ( Amer) ml/min Est GFR (Non-Af Amer) ml/min BUN/Creatinine Ratio (10-20) Glucose (70-99(Fasting)) mg/dl Calcium (8.6-10.3) mg/dl Magnesium (1.7-2.4) mg/dl Total Bilirubin (0.2-1.0) mg/dl AST (13-39) U/L ALT (7-52) U/L Alkaline Phosphatase (34-104) U/L Troponin I High Sens (0-14) pg/ml Total Protein (6.0-8.3) gm/dl Albumin (3.4-5.0) gm/dl Globulin (2.5-4.0) gm/dl Albumin/Globulin Ratio (0.9-2) Lipase (11-82) U/L SARS-CoV-2, RNA, NAAT NEGATIVE (NEGATIVE) Administered Medications Heparin Sodium/Dextrose (Heparin Sodium/Dextrose) 25,000 units in 500 mls @ 25 mls/hr IV .Q20H JEREMIAH; Protocol Stop: 12/18/22 12:44 Last Admin: 11/18/22 14:19 Dose: 1,250 units/hr, 25 mls/hr Documented By: Co-signed By: MIYA Discontinued Medications Albuterol (Albut/Ipratrop 3mg/0.5mg Neb 3 Ml Vial) 3 ml NEB NOW STA; Protocol Stop: 11/18/22 10:40 Last Admin: 11/18/22 11:20 Dose: 3 ml Documented By: Heparin Sodium (Porcine) (Heparin Sod (Porcine) 1000 Unit/Ml) 5,000 units IV NOW ONE Stop: 11/18/22 13:16 Last Admin: 11/18/22 14:18 Dose: 5,000 units Documented By: Co-signed By: MIYA Sodium Chloride (Nss 1000ml) 1,000 mls @ 999 mls/hr IV .Q1H1M ONE Stop: 11/18/22 10:56 Last Infusion: 11/18/22 12:47 Dose: 0 mls/hr Documented By: Admin: 11/18/22 10:12 Dose: 999 mls/hr Documented By: JANETH Potassium Chloride (K Kong / Wtr) 10 meq in 100 mls @ 100 mls/hr IV Q1H JEREMIAH Stop: 11/18/22 12:44 Last Infusion: 11/18/22 14:36 Dose: 0 mls/hr Documented By: Admin: 11/18/22 12:46 Dose: 100 mls/hr Documented By: Infusion: 11/18/22 12:20 Dose: 100 mls/hr Documented By: Admin: 11/18/22 11:20 Dose: 100 mls/hr Documented By: Magnesium Sulfate/Dextrose (Magnesium Sulfate / D5w) 1 gm in 100 mls @ 100 mls/hr IV NOW STA Stop: 11/18/22 11:40 Last Infusion: 11/18/22 12:47 Dose: 0 mls/hr Documented By: Admin: 11/18/22 11:16 Dose: 100 mls/hr Documented By: Ioversol (Optiray 320 500ml) 115 ml IV ONCE ONE Stop: 11/18/22 11:03 Last Admin: 11/18/22 11:03 Dose: 115 ml Documented By: PAOLO Potassium Chloride (Potassium Chloride Crtab 20 Meq Tabcr) 20 meq PO NOW STA Stop: 11/18/22 13:08 Last Admin: 11/18/22 14:39 Dose: 20 meq Documented By: Imaging Data Radiologist's Impression: Chest X-Ray 11/18/22 09:56 XR chest 1V portable CLINICAL HISTORY: Chest pain, nonspecific COMPARISON STUDY: Chest CT January 31, 2014. Chest radiograph February 12, 2015. FINDINGS: Lung volumes are normal. Lungs are clear. There is no pneumothorax or pleural effusion. Cardiac size is stable. Mediastinal contours are normal. There is no evidence for pulmonary edema. IMPRESSION: No acute cardiopulmonary findings. ACT 112: Negative or not required by law. Electronically signed by: Trey Tidwell M.D. 11/18/2022 10:16 AM Chest CTA 11/18/22 10:39 CT angio chest PE protocol CLINICAL HISTORY: cp, sob, h/o pe, r/o PE TECHNIQUE: Multidetector row helical CT of the chest was performed with angiographic protocol. Coronal and sagittal reformations were obtained. Coronal and sagittal MIPS were obtained from the axial data set and were submitted for review. Automated dose lowering techniques and/or adjustment according to patient size were utilized for this exam. CT DOSE: 892.35 mGy.cm Comparison: Comparison is made to CTA chest 01/31/2014 FINDINGS: Lungs and pleura: Atelectasis versus scarring is seen in the dependent portions of the lungs. There is a 7 mm pulmonary nodule in the left lower lobe which is unchanged from 2014. There is suggestion of fat density component. Heart and pericardium: There is evidence of right heart strain with enlargement right ventricle and flattening of the interventricular septum. Vessels: Extensive pulmonary emboli are seen involving the left lower lobe and right middle and lower lobar branches as well as numerous segmental and subsegmental branches. Mediastinum and thais: Unremarkable. Chest wall and lower neck: Mildly asymmetric breast tissue is seen, mammographic correlation is recommended. This appears new from prior exam. Abdomen: Unremarkable. Bones: Degenerative changes in the thoracic spine. IMPRESSION: 1. Extensive pulmonary emboli with evidence of right heart strain. 2. Stable left lower lobe pulmonary nodule which may represent a hamartoma. 3. Left breast density is nonspecific but apparently increased from prior exam, mammographic correlation is recommended. ACT 112: Negative or not required by law. Electronically signed by: Brian Vásquez M.D. 11/18/2022 11:33 AM Venous Doppler Study 11/18/22 12:35 BILATERAL LOWER EXTREMITY VENOUS DOPPLER HISTORY: Screening study in a patient with pulmonary emboli extensive PEs ?DVT clot burden COMPARISON STUDY: CTA chest of same day FINDINGS: There is normal compressibility, flow, and augmentation within the right lower extremity deep venous structures. Occlusive likely acute thrombus noted within the left common femoral, profunda femoris, superficial femoral and popliteal veins with partially occlusive thrombi within the posterior tibial and peroneal veins. The greater saphenous and anterior tibial veins appear patent. IMPRESSION: Extensive DVT of the left lower extremity. ACT 112: Negative or not required by law. Electronically signed by: Mauri Brandon M.D. 11/18/2022 3:40 PM Discharge Plan Visit Data Chief Complaint: Shortness of Breath/Dyspnea Stated Complaint: SOB, LEFT SHOULDER PAIN ED Provider: Matt Holbrook Discharge Problem: Bilateral pulmonary embolism, Elevated troponin, History of pulmonary embolism, Dyspnea on minimal exertion Patient Disposition: Admitted As Inpatient Discharge Instructions Interventions: ED Discharge Assessment Last Done: 11/18/22 15:32
[2022-11-18] MEDS ORDERED: OPTIRAY 320 500ml IV ONE (11:02)
[2022-11-18 11:04] LABS: Troponin I High Sensitivity 505.1 pg/ml (0-14)
[2022-11-18] MEDS: POTASSIUM CHLORIDE / WTR 10 MEQ/100 ML PLCT IV SCH ×2 (11:20→12:46)
--- NOTE | 2022-11-18 11:35 | CT Scan Report ---
CT angio chest PE protocol CLINICAL HISTORY: cp, sob, h/o pe, r/o PE TECHNIQUE: Multidetector row helical CT of the chest was performed with angiographic protocol. Beckman l and sagittal reformations were obtained. Coronal and sagittal MIPS were obtained from the axial raquel a set and were submitted for review. Automated dose lowering techniques and/or adjustment according to patient size were utilized for this exam. CT DOSE: 892.35 mGy.cm Comparison: Comparison is made to CTA chest 01/31/2014 FINDINGS: Lungs and pleura: Atelectasis versus scarring is seen in the dependent portions of the lungs. There i s a 7 mm pulmonary nodule in the left lower lobe which is unchanged from 2014. There is suggestion of fat density component. Heart and pericardium: There is evidence of right heart strain with enlargement right ventricle and f lattening of the interventricular septum. Vessels: Extensive pulmonary emboli are seen involving the left lower lobe and right middle and lower lobar branches as well as numerous segmental and subsegmental branches. Mediastinum and thais: Unremarkable. Chest wall and lower neck: Mildly asymmetric breast tissue is seen, mammographic correlation is recom mended. This appears new from prior exam. Abdomen: Unremarkable. Bones: Degenerative changes in the thoracic spine. IMPRESSION: 1. Extensive pulmonary emboli with evidence of right heart strain. 2. Stable left lower lobe pulmonary nodule which may represent a hamartoma. 3. Left breast density is nonspecific but apparently increased from prior exam, mammographic correla tion is recommended. ACT 112: Negative or not required by law. Electronically signed by: Brian Vásquez M.D. 11/18/2022 11:33 AM
[2022-11-18] MEDS ORDERED: Heparin IV Adult Wt-Based Standard WITH Bolus Protocol IV SCH (12:30)
--- NOTE | 2022-11-18 12:42 | History & Physical Report ---
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 Will continue her usual potassium supplementation without this and repeat labs this evening to make sure improving. (3) GERD (gastroesophageal reflux disease): Plan: Switch omeprazole to pantoprazole per hospital formulary (4) Sleep apnea: Plan: Avoid CPAP given significant clot burden to avoid hemodynamic instability (5) Hypertension: Plan: Hold anti-hypertensives in setting of acute extensive PE (6) Splenic artery aneurysm: Plan: Onset noted as 2012. Added from prior chart. Plan VTE Prophylaxis - IV heparin Diet - regular Disposition - admit to PCU Admission and Anticipated Discharge Date Admission Date: November 18, 2022 History of Present Illness Chief Complaint: Chest pain, shortness of breath Primary Care Provider: DO Karlee Mane Rios is a 67 year old female who presents to the ER with shortness of breath and pain on her left shoulder. She reports feeling well and her normal self yesterday and went to work. Shortness of breath started last night around 7pm, better on lying down, worse on exertion. around 7pm last night. She reports pain along her waist line initially and consider she might have kidney stones although this pain dissipated. Pain in her shoulder started this morning, worse on exertion and inspiration, severity 2/10, no radiation. She denies any calf pain or acute leg swelling. She notes her left leg is usually bigger than the right. She has a history of pulmonary emboli previously while on tamoxifen after radiation. 2011. She reports this was treated with warfarin although is unclear on the duration. No known family history. Allergies Allergy/AdvReac Type Severity Reaction Status Date / Time amoxicillin Allergy Mild ? rash Verified 11/18/22 13:18 Penicillins Allergy Mild RASH Verified 11/18/22 13:18 Home Medications Medication Instructions Recorded Confirmed Type Lactobacillus 1 cap PO QAM 11/18/18 11/18/22 History acidophilus-Bifidobac.animalis 31 billion cell capsule cholecalciferol (vitamin D3) 75 3,000 units PO QAM 11/18/18 11/18/22 History mcg (3,000 unit) tablet ferrous sulfate 325 mg (65 mg 325 mg PO BID 11/18/18 11/18/22 History iron) tablet potassium chloride 20 mEq 20 meq PO TID #540 tabs 11/27/20 11/18/22 Rx tablet,extended release(part/cryst) loperamide 2 mg tablet (Imodium 2 mg PO Q6H PRN Gi Upset 10/29/21 11/18/22 History A-D) amitriptyline 25 mg tablet 25 mg PO HS #90 tabs 12/08/21 11/18/22 Rx omeprazole 20 mg capsule,delayed 20 mg PO QPM #90 caps 06/21/22 11/18/22 Rx release triamterene 37.5 1 cap PO QAM #90 caps 06/21/22 11/18/22 Rx mg-hydrochlorothiazide 25 mg capsule albuterol sulfate 90 mcg/actuation 2 puff inhalation Q6H PRN 09/02/22 11/18/22 Rx aerosol inhaler shortness of breath or wheezing #18 grams Past Med/Surg History Medical History Actinic keratosis CA in situ breast (01/24/12) Calculus of ureter (01/10/13) Cervical cancer screening Dyslipidemia GERD (gastroesophageal reflux disease) Headache, migraine reason for amitriptyline Hepatic steatosis History of breast cancer 01/2012--right breast--sx/chemo/radiation History of Clostridium difficile colitis History of pulmonary embolism 2011--d/t chemo medication, put on coumadin/then eliquis--off meds 2 yrs ago Hypertension Iron deficiency Irritable bowel syndrome (IBS) Melanoma of nose hx of, removed in office Nausea and vomiting after administration of anesthetic agent Nephrolithiasis Osteopenia Prediabetes Sleep apnea cpap Splenic artery aneurysm (01/10/13) Tubular adenoma of colon Vitamin D deficiency Surgical History H/O lithotripsy History of bilateral tubal ligation History of breast biopsy bilt--malignant on right History of cholecystectomy History of colonoscopy with polypectomy 07/2017--had large "fatty tissue" polyp removed via colonoscopy at [facility] [place] History of gynecologic surgery D&E History of tonsillectomy and adenoidectomy S/P section x 2 S/P dilatation and curettage S/P mastectomy, bilateral (03/2012) with breast reconstruction Status post laser lithotripsy of ureteral calculus Family History Father , d/t [place] age 49 Coronary heart disease Myocardial infarction, Onset Age: 49 Mother Coronary heart disease Myocardial infarction, Onset Age: 74 Sister Family history of reaction to anesthesia nausea Other Heart disease No family history of adverse response to anesthesia No family history of bleeding disorder Denies family history of Ovarian cancer Prostate cancer Breast cancer Colorectal cancer Social History Smoking Status: Never smoker Second Hand Exposure: No; Do You Dip or Chew Tobacco: No; Tobacco Cessation Education Requested by Patient: No Hx Alcohol Use: Yes Alcohol type: wine Hx Substance Use: No Preferred Language: Kinyarwanda Communication Ability: Effective Visual Impairment: No Limitations Hearing Ability: Normal 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 current occupational status: unemployed How many Children do You have: 2 Other Information That Helps Us Care for You: No Feels Safe at Home: Yes Safety Concerns: Feels Safe At This Time Childhood Exposure to Second-Hand Smoke: No Diet: regular caffeine: Yes (Soda x 1 per day.) during the past year weight has: decreased > 10 lbs Dental Care, Regularly: Yes Physical Activity Frequency: Daily Seatbelt Use: always Sunscreen Use: Yes Assistive Devices: Glasses Review of Systems Review of Systems: All systems reviewed & are unremarkable except as noted in HPI & below Physical Exam Constitutional: WD/WN, vitals as above Eyes: + anicteric sclerae; normal pupil size ENMT: external ear and nose normal, oropharynx normal Respiratory: normal respiratory effort, lungs clear to auscultation Cardiovascular: RRR, no murmur, no edema Extremities: normal capillary refill; no calf tenderness (left calf > 2 cm larger in circumference than right) Gastrointestinal (Abdomen): normal bowel sounds, soft, nontender, no hepatosplenomegaly Musculoskeletal: no cyanosis or clubbing, extremities motor strength 5/5 Skin: no rashes, warm and dry Neurologic: moves all extremities and awake; not confused Psychiatric: A+Ox3, euthymic affect Results & Data Results & Data Vital Signs (Past 12 Hours) Vital Signs Temp Pulse Resp BP Pulse Ox O2 Del Method 11/18/22 10:30 93 H 22 92 11/18/22 10:00 99 H 23 92 Room Air 11/18/22 10:00 139/74 11/18/22 10:04 93 Room Air 11/18/22 10:03 93 Room Air 11/18/22 09:53 100 H 11/18/22 09:46 101 H 18 143/87 H 92 11/18/22 09:33 37.2 C 99 H 22 145/84 H 93 Room Air Laboratory Results Abnormal lab results 11/18/22 11/18/22 Range/Units 09:55 09:55 MCV 78.1 L (80.0-100.0) fL Potassium 2.8 L (3.5-5.1) mmol/L Glucose 131 H (70-99(Fasting)) mg/dl Troponin I High Sens 505.1 H* (0-14) pg/ml Diagnostic Findings XR chest 1V portable CLINICAL HISTORY: Chest pain, nonspecific COMPARISON STUDY: Chest CT January 31, 2014. Chest radiograph February 12, 2015. FINDINGS: Lung volumes are normal. Lungs are clear. There is no pneumothorax or pleural effusion. Cardiac size is stable. Mediastinal contours are normal. There is no evidence for pulmonary edema. IMPRESSION: No acute cardiopulmonary findings. CT angio chest PE protocol CLINICAL HISTORY: cp, sob, h/o pe, r/o PE TECHNIQUE: Multidetector row helical CT of the chest was performed with angiographic protocol. Coronal and sagittal reformations were obtained. Coronal and sagittal MIPS were obtained from the axial data set and were submitted for review. Automated dose lowering techniques and/or adjustment according to patient size were utilized for this exam. CT DOSE: 892.35 mGy.cm Comparison: Comparison is made to CTA chest 01/31/2014 FINDINGS: Lungs and pleura: Atelectasis versus scarring is seen in the dependent portions of the lungs. There is a 7 mm pulmonary nodule in the left lower lobe which is unchanged from 2014. There is suggestion of fat density component. Heart and pericardium: There is evidence of right heart strain with enlargement right ventricle and flattening of the interventricular septum. Vessels: Extensive pulmonary emboli are seen involving the left lower lobe and right middle and lower lobar branches as well as numerous segmental and subsegmental branches. Mediastinum and thais: Unremarkable. Chest wall and lower neck: Mildly asymmetric breast tissue is seen, mammographic correlation is recommended. This appears new from prior exam. Abdomen: Unremarkable. Bones: Degenerative changes in the thoracic spine. IMPRESSION: 1. Extensive pulmonary emboli with evidence of right heart strain. 2. Stable left lower lobe pulmonary nodule which may represent a hamartoma. 3. Left breast density is nonspecific but apparently increased from prior exam, mammographic correlation is recommended. Medications Administered ER Medications Given: NSS 1L bolus Duoneb 3ml NEB KCl 10 meq x2 IV Code Status & VTE Plan Code Status Full VTE Prophylaxis Plan VTE Prophylaxis will be ordered: Yes PG Care Time/CCT Total # of Minutes Spent Total Time Spent with Patient: Total time spent is greater than 50% in coordination of care (as documented) at patient's floor/unit and/or counseling patient: Coding Level of Care Code 14686 INT INP/OBS CARE 3/75MIN Diagnoses Acute pulmonary embolism I26.99 Hypokalemia E87.6 GERD (gastroesophageal reflux disease) K21.9 Sleep apnea G47.30 Hypertension I10 Splenic artery aneurysm I72.8
[2022-11-18 12:56] LABS: Partial Thromboplastin Ratio 0.9; Partial Thromboplastin Time 25.4 Seconds (21.0-31.0)
[2022-11-18] MEDS ORDERED: POTASSIUM CHLORIDE CRTAB 20 MEQ TABCR PO STA (13:07)
[2022-11-18] MEDS ORDERED: HEPARIN SOD (PORCINE) 1000 UNIT/ML IV ONE (13:15)
[2022-11-18] MEDS: HEPARIN SODIUM/DEXTROSE 25,000 UNITS/500 ML BAG IV SCH (14:19)
[2022-11-18] MEDS ORDERED: ONDANSETRON INJ 2 MG/ML 2 ML VIAL IV PRN (14:53)
[2022-11-18] MEDS ORDERED: ACETAMINOPHEN 325 MG TAB PO PRN (14:53)
--- NOTE | 2022-11-18 15:41 | Ultrasound Report ---
BILATERAL LOWER EXTREMITY VENOUS DOPPLER HISTORY: Screening study in a patient with pulmonary emboli extensive PEs ?DVT clot burden COMPARISON STUDY: CTA chest of same day FINDINGS: There is normal compressibility, flow, and augmentation within the right lower extremity de ep venous structures. Occlusive likely acute thrombus noted within the left common femoral, profunda femoris, superficial f emoral and popliteal veins with partially occlusive thrombi within the posterior tibial and peroneal veins. The greater saphenous and anterior tibial veins appear patent. IMPRESSION: Extensive DVT of the left lower extremity. ACT 112: Negative or not required by law. Electronically signed by: Mauri Brandon M.D. 11/18/2022 3:40 PM
--- NOTE | 2022-11-18 19:29 | Electrocardiogram Report ---
Test Reason : Blood Pressure : / mmHG Vent. Rate : 106 BPM Atrial Rate : 106 BPM P-R Int : 178 ms QRS Dur : 084 ms QT Int : 358 ms P-R-T Axes : 068 -53 152 degrees QTc Int : 475 ms Sinus tachycardia Possible Left atrial enlargement Left anterior fascicular block Poor R wave progression, consider anterior TX vs. lead placement vs. LVH Abnormal ECG When compared with ECG of 08-FEB-2013 18:04, Left anterior fascicular block is now Present Nonspecific T wave abnormality, worse in Inferior leads T wave inversion now evident in Lateral leads Confirmed by Emery Cisneros ([id number]) on 11/18/2022 7:28:44 PM Referred By: REFERRED SELF Confirmed By:Bernardo Cisneros
--- NOTE | 2022-11-18 19:37 | XCELERA ---
[id number]
[2022-11-18] MEDS: AMITRIPTYLINE HCL 25 MG TAB PO SCH (20:24)
[2022-11-18] MEDS: PANTOprazole 40 MG TAB PO SCH (20:24)
[2022-11-18] MEDS: FERROUS SULFATE 325 MG TAB PO SCH (20:24)
[2022-11-18 20:58] LABS: BUN Creatinine Ratio 9.9 (10-20); Calcium 8.6 mg/dl (8.6-10.3); Creatinine Clr Calc Pharmacy 40.9 ml/min; Est GFR (African American) 43.9 ml/min; Est GFR (Non-African American) 37.9 ml/min; Potassium 3.3 mmol/L (3.5-5.1)
[2022-11-18] MEDS ORDERED: POTASSIUM CHLORIDE CRTAB 20 MEQ TABCR PO SCH (21:00)
[2022-11-18 21:24] LABS: Partial Thromboplastin Ratio 1.7
[2022-11-18 21:27] LABS: Partial Thromboplastin Time 48.9 Seconds (21.0-31.0)
[2022-11-19 04:56] LABS: Hematocrit (blood only) 37.6 % (37.0-47.0); Hemoglobin 11.9 g/dl (12.0-16.0); Mean Corpuscular Hemoglobin 25.6 pg (25.0-34.0); Mean Corpuscular Hgb Conc 31.6 g/dL (32.0-36.0); Mean Corpuscular Volume 80.9 fL (80.0-100.0); Mean Platelet Volume 10.3 fL (9.4-12.4); Platelet Count 170 K/uL (130-400); RDW Coefficient of Variation 14.4 % (11.5-14.5); RDW Standard Deviation 42.5 fL (36.4-46.3); Red Blood Count 4.65 M/uL (4.20-5.40); White Blood Count 6.38 K/ul (4.8-10.8)
[2022-11-19 05:14] LABS: BUN Creatinine Ratio 13.1 (10-20); Calcium 8.7 mg/dl (8.6-10.3); Creatinine Clr Calc Pharmacy 53.9 ml/min; Est GFR (African American) 61.3 ml/min; Est GFR (Non-African American) 52.9 ml/min; Potassium 3.2 mmol/L (3.5-5.1)
[2022-11-19 05:39] LABS: Partial Thromboplastin Ratio 1.7
[2022-11-19 06:08] LABS: Partial Thromboplastin Time 48.4 Seconds (21.0-31.0)
--- NOTE | 2022-11-19 07:14 | Hospitalist Progress Note ---
Date of Service November 19, 2022 Assessment & Plan (1) Acute pulmonary embolism: (2) Hypokalemia: (3) Sleep apnea: (4) Hypertension: (5) History of breast cancer: (6) History of pulmonary embolism: Plan Acute pulmonary embolism -History of previous PE back in 2012 while on tamoxifen, was taking Eliquis and stopped in April 2018. -Chest CT showed extensive pulmonary emboli with evidence of right heart strain. Stable left lower lobe pulmonary nodule -Right heart strain noted on CT with elevated troponin -ECHO showed EF of 55-60%. Grade 1 diastolic dysfunction, right ventricle mildly dilated, Simms sign and elevated right ventricular systolic pressure of 40-50. -Duplex ultrasound showed extensive DVTs in the left lower extremity -Currently on IV heparin, will continue monitor for 72 hours and plans to transition to Eliquis. -We will most likely need lifelong anticoagulation. Elevated troponin -Elevated troponin of 505 on admission, most likely secondary to right heart strain/acute pulmonary emboli. -Trending downward, slight increase on 11/19 from 305 to 327. We will continue to trend. Hypokalemia -Increased home dose of potassium to 40 mg 3 times daily. -Most likely related to HCTZ. Should follow-up with PCP about switching medications. GERD (gastroesophageal reflux disease) -Switch omeprazole to pantoprazole per hospital formulary Sleep apnea -Patient may continue to use CPAP. No evidence to support discontinuing CPAP in the setting of pulmonary embolism. Hypertension -Home meds held on admission. Blood pressure stable at this point. Consider restarting once patient is clinically stable and hypokalemia has resolved. History of breast cancer -Chest CTA also showed left breast density increased from prior exam, recommended mammographic correlation. -Should follow-up with PCP to discuss if mammogram is warranted or not. Of note patient record show a previous history of splenic artery's aneurysm, with looking back on previous notes, there is no evidence of splenic artery aneurysm. Was put into the chart as far back as 2012. Since that time she has been on Eliquis for 5 years without any issues. They look VTE Prophylaxis - IV heparin Diet - regular Disposition - admit to PCU Admission and Anticipated Discharge Date Admission Date: November 18, 2022 Supervising Physician Co-Signing Physician Notes Attending attestation Pt seen and examined in concert with Dr. Gee. In agreement with the documented findings as noted in the resident documentation with any exceptions or additions as noted here. No acute complaints at time of examination at bedside. On examination, S1/S2 nl RRR no MCG. CTAB. Abd NT/ND BS+ve Acute pulmonary embolism with right heart strain - continue heparin, transition to apixaban at 72 hours. Trend troponin Else see resident documentation as noted. Subjective Patient was seen bedside this morning. She states she has some SOB still but getting a lot better. Still having exertion SOB as well as dull shoulder pain. She denies any chest pain, ab pain, or other issues. Review of Systems Review of Systems: All systems reviewed & are unremarkable except as noted in Subjective Physical Exam Constitutional: WD/WN, vitals as above Eyes: PERRL, conjunctivae normal, anicteric sclerae ENMT: external ear and nose normal, oropharynx normal Respiratory: normal respiratory effort, lungs clear to auscultation Cardiovascular: RRR, no murmur, no edema Gastrointestinal (Abdomen): normal bowel sounds, soft, nontender, no hepatosplenomegaly Musculoskeletal: no cyanosis or clubbing, extremities motor strength 5/5 Skin: no rashes, warm and dry Neurologic: patellar DTR's 2+ bilat, sensation intact Psychiatric: A+Ox3, euthymic affect Results & Data Results & Data Vital Signs (Past 12 Hours) Vital Signs Temp Pulse Pulse Pulse Resp BP BP 11/19/22 03:59 36.7 C 72 18 118/72 11/18/22 22:36 79 11/18/22 23:33 36.9 C 75 18 112/67 11/18/22 21:35 85 18 110/69 11/18/22 19:55 11/18/22 19:45 36.6 C 87 17 113/72 Pulse Ox O2 Del Method O2 Flow Rate 11/19/22 03:59 95 Nasal Cannula 2 11/18/22 22:36 11/18/22 23:33 96 Nasal Cannula 2 11/18/22 21:35 97 Nasal Cannula 2 11/18/22 19:55 94 Nasal Cannula 2 11/18/22 19:45 89 L Room Air Laboratory Results 11/19/22 04:19 11/19/22 04:19 Resident Activity Tracking Resident Involvement: Resident Care Provided Care Provided: Adult Hospital Medicine
[2022-11-19] MEDS: FERROUS SULFATE 325 MG TAB PO SCH ×2 (08:31→20:41)
[2022-11-19] MEDS: POTASSIUM CHLORIDE CRTAB 20 MEQ TABCR PO SCH ×3 (08:32→20:40)
[2022-11-19] MEDS: HEPARIN SODIUM/DEXTROSE 25,000 UNITS/500 ML BAG IV SCH (08:33)
[2022-11-19] MEDS: PANTOprazole 40 MG TAB PO SCH (20:41)
[2022-11-19] MEDS: AMITRIPTYLINE HCL 25 MG TAB PO SCH (20:41)
[2022-11-20] MEDS: HEPARIN SODIUM/DEXTROSE 25,000 UNITS/500 ML BAG IV SCH (04:21)
[2022-11-20 04:58] LABS: Hemoglobin 11.4 g/dl (12.0-16.0); Mean Corpuscular Hemoglobin 25.7 pg (25.0-34.0); Mean Corpuscular Hgb Conc 31.7 g/dL (32.0-36.0); Mean Corpuscular Volume 81.1 fL (80.0-100.0); Mean Platelet Volume 9.9 fL (9.4-12.4); Platelet Count 164 K/uL (130-400); RDW Coefficient of Variation 14.4 % (11.5-14.5); Red Blood Count 4.44 M/uL (4.20-5.40); White Blood Count 6.51 K/ul (4.8-10.8)
[2022-11-20 05:16] LABS: BUN Creatinine Ratio 15.3 (10-20); Calcium 8.5 mg/dl (8.6-10.3); Creatinine Clr Calc Pharmacy 48.8 ml/min; Est GFR (African American) 54.5 ml/min; Potassium 3.5 mmol/L (3.5-5.1)
[2022-11-20 05:39] LABS: Partial Thromboplastin Ratio 1.5
[2022-11-20 06:08] LABS: Partial Thromboplastin Time 40.9 Seconds (21.0-31.0)
--- NOTE | 2022-11-20 07:40 | Hospitalist Progress Note ---
Date of Service November 20, 2022 Assessment & Plan (1) Acute pulmonary embolism: (2) Hypokalemia: (3) Sleep apnea: (4) Hypertension: (5) History of breast cancer: (6) History of pulmonary embolism: Plan Acute pulmonary embolism -History of previous PE back in 2012 while on tamoxifen, was taking Eliquis and stopped in April 2018. -Chest CT showed extensive pulmonary emboli with evidence of right heart strain. Stable left lower lobe pulmonary nodule -Right heart strain noted on CT with elevated troponin -ECHO showed EF of 55-60%. Grade 1 diastolic dysfunction, right ventricle mildly dilated, Simms sign and elevated right ventricular systolic pressure of 40-50. -Duplex ultrasound showed extensive DVTs in the left lower extremity -Currently on IV heparin, will continue monitor for 72 hours and plans to transition to Eliquis. -We will most likely need lifelong anticoagulation. Elevated troponin -Elevated troponin of 505 on admission, most likely secondary to right heart strain/acute pulmonary emboli. -Trending downward, slight increase on 11/19 from 305 to 327. We will continue to trend. Hypokalemia -Increased home dose of potassium to 40 mg 3 times daily. -Most likely related to HCTZ. Should follow-up with PCP about switching medications. GERD (gastroesophageal reflux disease) -Switch omeprazole to pantoprazole per hospital formulary Sleep apnea -Patient may continue to use CPAP. No evidence to support discontinuing CPAP in the setting of pulmonary embolism. Hypertension -Home meds held on admission. Blood pressure stable at this point. Consider restarting once patient is clinically stable and hypokalemia has resolved. History of breast cancer -Chest CTA also showed left breast density increased from prior exam, recommended mammographic correlation. -Should follow-up with PCP to discuss if mammogram is warranted or not. Of note patient record show a previous history of splenic artery's aneurysm, with looking back on previous notes, there is no evidence of splenic artery aneurysm. Was put into the chart as far back as 2012. Since that time she has been on Eliquis for 5 years without any issues. They look VTE Prophylaxis - IV heparin Diet - regular Disposition - admit to PCU Admission and Anticipated Discharge Date Admission Date: November 18, 2022 Results & Data Results & Data Vital Signs (Past 12 Hours) Vital Signs Temp Pulse Pulse Resp BP Pulse Ox O2 Del Method 11/20/22 03:22 36.4 C L 74 18 126/70 97 Nasal Cannula 11/19/22 21:57 83 11/20/22 00:05 36.6 C 75 16 134/77 97 Nasal Cannula 11/19/22 20:19 36.6 C 81 18 117/70 98 Nasal Cannula 11/19/22 20:05 Nasal Cannula O2 Flow Rate 11/20/22 03:22 2 11/19/22 21:57 11/20/22 00:05 2 11/19/22 20:19 2 11/19/22 20:05 2
[2022-11-20] MEDS: FERROUS SULFATE 325 MG TAB PO SCH (07:50)
[2022-11-20] MEDS: POTASSIUM CHLORIDE CRTAB 20 MEQ TABCR PO SCH ×2 (07:50→14:44)
--- NOTE | 2022-11-20 15:18 | Discharge Summary ---
Date of Service November 20, 2022 Admission HPI Per Admitting Provider Karlee Rios is a 67 year old female who presents to the ER with shortness of breath and pain on her left shoulder. She reports feeling well and her normal self yesterday and went to work. Shortness of breath started last night around 7pm, better on lying down, worse on exertion. around 7pm last night. She reports pain along her waist line initially and consider she might have kidney stones although this pain dissipated. Pain in her shoulder started this morning, worse on exertion and inspiration, severity 2/10, no radiation. She denies any calf pain or acute leg swelling. She notes her left leg is usually bigger than the right. She has a history of pulmonary emboli previously while on tamoxifen after radiation. 2011. She reports this was treated with warfarin although is unclear on the duration. No known family history. Admission Exam Per Admitting Provider Constitutional: WD/WN, vitals as above Eyes: + anicteric sclerae; normal pupil size ENMT: external ear and nose normal, oropharynx normal Respiratory: normal respiratory effort, lungs clear to auscultation Cardiovascular: RRR, no murmur, no edema Extremities: normal capillary refill; no calf tenderness (left calf > 2 cm larger in circumference than right) Gastrointestinal (Abdomen): normal bowel sounds, soft, nontender, no hepatosplenomegaly Musculoskeletal: no cyanosis or clubbing, extremities motor strength 5/5 Skin: no rashes, warm and dry Neurologic: moves all extremities and awake; not confused Psychiatric: A+Ox3, euthymic affect Principal Diagnosis Pulmonary embolism Discharge Exam Constitutional WD/WN, vitals as above Eyes PERRL, conjunctivae normal, anicteric sclerae + anicteric sclerae; normal pupil size ENMT external ear and nose normal, oropharynx normal Respiratory normal respiratory effort, lungs clear to auscultation Cardiovascular RRR, no murmur, no edema Extremities: normal capillary refill; no calf tenderness (left calf > 2 cm larger in circumference than right) Gastrointestinal (Abdomen) normal bowel sounds, soft, nontender, no hepatosplenomegaly Musculoskeletal no cyanosis or clubbing, extremities motor strength 5/5 Skin no rashes, warm and dry Neurologic patellar DTR's 2+ bilat, sensation intact moves all extremities and awake; not confused Psychiatric A+Ox3, euthymic affect Discharge Data Allergies Allergy/AdvReac Type Severity Reaction Status Date / Time amoxicillin Allergy Mild ? rash Verified 11/18/22 13:18 Penicillins Allergy Mild RASH Verified 11/18/22 13:18 Consultations 11/18/22 12:32 ED Decision to Admit Stat Ordered Studies 11/18/22 10:39 CT angio chest PE protocol Stat 11/18/22 12:35 US venous doppler LE BI Stat Chest X-Ray 11/18/22 09:56 XR chest 1V portable CLINICAL HISTORY: Chest pain, nonspecific COMPARISON STUDY: Chest CT January 31, 2014. Chest radiograph February 12, 2015. FINDINGS: Lung volumes are normal. Lungs are clear. There is no pneumothorax or pleural effusion. Cardiac size is stable. Mediastinal contours are normal. There is no evidence for pulmonary edema. IMPRESSION: No acute cardiopulmonary findings. ACT 112: Negative or not required by law. Electronically signed by: Trey Tidwell M.D. 11/18/2022 10:16 AM Chest CTA 11/18/22 10:39 CT angio chest PE protocol CLINICAL HISTORY: cp, sob, h/o pe, r/o PE TECHNIQUE: Multidetector row helical CT of the chest was performed with angiographic protocol. Coronal and sagittal reformations were obtained. Coronal and sagittal MIPS were obtained from the axial data set and were submitted for review. Automated dose lowering techniques and/or adjustment according to sb ent size were utilized for this exam. CT DOSE: 892.35 mGy.cm Comparison: Comparison is made to CTA chest 01/31/2014 FINDINGS: Lungs and pleura: Atelectasis versus scarring is seen in the dependent portions of the lungs. There is a 7 mm pulmonary nodule in the left lower lobe which is unchanged from 2014. There is suggestion of fat density component. Heart and pericardium: There is evidence of right heart strain with enlargement right ventricle and flattening of the interventricular septum. Vessels: Extensive pulmonary emboli are seen involving the left lower lobe and right middle and lower lobar branches as well as numerous segmental and subsegmental branches. Mediastinum and thais: Unremarkable. Chest wall and lower neck: Mildly asymmetric breast tissue is seen, mammographic correlation is recommended. This appears new from prior exam. Abdomen: Unremarkable. Bones: Degenerative changes in the thoracic spine. IMPRESSION: 1. Extensive pulmonary emboli with evidence of right heart strain. 2. Stable left lower lobe pulmonary nodule which may represent a hamartoma. 3. Left breast density is nonspecific but apparently increased from prior exam, mammographic correlation is recommended. ACT 112: Negative or not required by law. Electronically signed by: Brian Vásquez M.D. 11/18/2022 11:33 AM Venous Doppler Study 11/18/22 12:35 BILATERAL LOWER EXTREMITY VENOUS DOPPLER HISTORY: Screening study in a patient with pulmonary emboli extensive PEs ?DVT clot burden COMPARISON STUDY: CTA chest of same day FINDINGS: There is normal compressibility, flow, and augmentation within the right lower extremity deep venous structures. Occlusive likely acute thrombus noted within the left common femoral, profunda femoris, superficial femoral and popliteal veins with partially occlusive thrombi within the posterior tibial and peroneal veins. The greater saphenous and anterior tibial veins appear patent. IMPRESSION: Extensive DVT of the left lower extremity. ACT 112: Negative or not required by law. Electronically signed by: Mauri Brandon M.D. 11/18/2022 3:40 PM Abnormal lab results 11/19/22 11/20/22 11/20/22 Range/Units 22:22 04:39 04:39 Hgb 11.4 L (12.0-16.0) g/dl Hct 36.0 L (37.0-47.0) % MCHC 31.7 L (32.0-36.0) g/dL APTT (21.0-31.0) Seconds Glucose (70-99(Fasting)) mg/dl Calcium (8.6-10.3) mg/dl Troponin I High Sens 338.5 H* 274.2 H* (0-14) pg/ml 11/20/22 11/20/22 Range/Units 04:39 04:39 Hgb (12.0-16.0) g/dl Hct (37.0-47.0) % MCHC (32.0-36.0) g/dL APTT 40.9 H* (21.0-31.0) Seconds Glucose 108 H (70-99(Fasting)) mg/dl Calcium 8.5 L (8.6-10.3) mg/dl Troponin I High Sens (0-14) pg/ml Hospital Course (1) Acute pulmonary embolism: (2) Hypokalemia: (3) Sleep apnea: (4) Hypertension: (5) History of breast cancer: (6) History of pulmonary embolism: (7) Acute and chronic respiratory failure with hypoxia: Plan Acute pulmonary embolism Acute hypoxic respiratory failure -History of previous PE back in 2012 while on tamoxifen, was taking Eliquis and stopped in April 2018. -Chest CT showed extensive pulmonary emboli with evidence of right heart st rain. Stable left lower lobe pulmonary nodule -Right heart strain noted on CT with elevated troponin -ECHO showed EF of 55-60%. Grade 1 diastolic dysfunction, right ventricle mildly dilated, Simms sign and elevated right ventricular systolic pressure of 40-50. -Duplex ultrasound showed extensive DVTs in the left lower extremity -Started on IV heparin and will be transition to Eliquis 10 mg twice a day for 7 days then 5 mg twice a day at time of discharge. -We will most likely need lifelong anticoagulation, should follow-up with PCP about continuing anticoagulation. -No evidence of patient ever having splenic artery aneurysm. -Two-step completed prior to discharge, showed patient will need 2 L of oxygen while ambulating. Was given at time of discharge, she will follow-up with PCP regarding if oxygen supplementation is needed in the future. Elevated troponin -Elevated troponin of 505 on admission, most likely secondary to right heart strain/acute pulmonary emboli. -Trending downward during admission. Was 274 at time of discharge. -EKG done prior to discharge showed normal sinus rhythm. Hypokalemia -Increased home dose of potassium to 40 mg 3 times daily. -Most likely related to HCTZ. Should follow-up with PCP about switching blood pressure management due to regularly being hypokalemic and needing potassium supplementation. -Of note patient's blood pressure remained stable despite holding blood pressure medication. GERD (gastroesophageal reflux disease) -Stable Sleep apnea -Patient may continue to use CPAP. No evidence to support discontinuing CPAP in the setting of pulmonary embolism. Hypertension -Home meds held on admission. Blood pressure stable at this point, while holding medications. -Recommend patient follow-up with PCP regarding need of HCTZ due to continued hypokalemia and having to take 3 potassium pills a day. History of breast cancer -Chest CTA also showed left breast density increased from prior exam, recommended mammographic correlation. -Should follow-up with PCP to discuss if mammogram is warranted or not. Of note patient record show a previous history of splenic artery's aneurysm, with looking back on previous notes, there is no evidence of splenic artery aneurysm. Was put into the chart as far back as 2012. Since that time she has been on Eliquis for 5 years without any issues. Total Time Total Time Spent Total Time Spent (In Minutes): Please refer to attendings attestation. Discharge Plan Discharge Items Patient Disposition: Home - Self-Care Reason For Visit: SOB, LEFT SHOULDER PAIN Discharge Diagnosis: Pulmonary embolism Activity: Resume your previous activity Non-emergency contact: Primary Care Provider Call non-emergency contact if: you have any medication questions, your pain is unusual for you and your temperature is above 101.5 Follow-up/Referrals: Ciara Cooper, [Primary Care Provider] - (1 week) Diet: Heart Healthy Addtl Attending Provider Instructions: You were admitted to the hospital for pulmonary embolism. You were treated with anticoagulation and oxygen. A discharge summary will be sent to your primary care physician to ensure continuity of care. Please bring this discharge summary with you to your next office appointment so that your provider can review it at that time. Follow-up appointments: * Make a follow-up appointment with your PCP within the next week. It is very important that you follow up with them shortly after discharge from the hospital. * Keep all your follow-up appointments as already scheduled. If you cannot make an appointment, notify your provider. Medications: Your medication list has been reviewed and reconciled upon discharge to ensure accuracy and continuity of care. An updated list of all your medications is included with your hospital discharge paperwork. Please review this list closely, and make note of any changes. * We sent a new medication called Eliquis to your pharmacy. Take Eliquis 10 mg twice a day for the next 7 days. After 7 days take Eliquis 5 mg twice a day. * We also sent you home with oxygen. You will need 2 L of oxygen with ambulation. You do not need any oxygen at rest. You should follow-up with your PCP about continue need of oxygen. * If you have any issues filling these prescriptions, please call [phone] and ask to leave a message for Dr. Gee. * Take your medications as instructed; do not skip a dose of your medicines. Make sure all of your doctors know every medicine you are taking (including [id number] medicines, vitamins, and supplements). Call your primary care provider before taking any new medicines (including over- the-counter medicines, vitamins, and supplements), because some of these may interact with your current medications, or may make your symptoms worse. Tell your primary care provider if you cannot afford your medications. CONTACT YOUR PRIMARY CARE PROVIDER if you experience any of the following: * Worsening of symptoms * Fever, chills, or fatigue * Difficulty following your treatment plan, or difficulty taking medications CALL 911 OR GO TO THE EMERGENCY DEPARTMENT if you experience any of the following: * Sudden, severe abdominal pain or nausea/vomiting * Severe chest pain, or chest pain that radiates (moves) to your jaw or arm * Sudden, severe shortness of breath or difficulty breathing Thank you for allowing us to participate in your care. Pending Studies at Discharge: No Stand-Alone Forms: My [facility] [employer], Smoking Cessation Medications and DC Order Prescriptions: New Eliquis 5 mg (74 tabs) tablets,dose pack 5 mg PO BID Qty: 74 0RF Rx Instructions: Take 2 tablets of Eliquis 5 mg twice a day for the first 7 days. After 7 days take 1 tablet Eliquis 5 mg twice a day. Continued potassium chloride 20 mEq tablet,ER particles/crystals 20 meq PO TID Qty: 540 1RF amitriptyline 25 mg tablet 25 mg PO HS Qty: 90 3RF triamterene-hydrochlorothiazid 37.5-25 mg capsule 1 cap PO QAM Qty: 90 1RF omeprazole 20 mg capsule,delayed release(DR/EC) 20 mg PO QPM Qty: 90 1RF albuterol sulfate 90 mcg/actuation HFA aerosol inhaler 2 puff inhalation Q6H PRN (Reason: shortness of breath or wheezing) Qty: 18 3RF loperamide [Imodium A-D] 2 mg tablet 2 mg PO Q6H PRN (Reason: Gi Upset) cholecalciferol (vitamin D3) 3,000 unit tablet 3,000 units PO QAM ferrous sulfate 325 mg (65 mg iron) tablet 325 mg PO BID L. acidophilus/Bifid. animalis 31 billion cell capsule 1 cap PO QAM Discharge Orders: Discharge Order (Routine); Ordered 11/20/22 Ordered By: Krishna Cummins/Other Patient Handouts: DVT Complications, Pulmonary Embolism, Anticoagulants, Understanding Oxygen Therapy, Using Oxygen Safely, Traveling with Oxygen Admission Data Admit Date/Time: 11/18/22 13:04 Attending Provider: Maciel Lugo Admit Provider: Marco Ornelas Primary Care Provider: Ciara Cooper Other Providers: Marco Ornelas Other Interventions: Discharge Summary Assessment (RN) Last Done: 11/20/22 13:08 Supervising Physician Co-Signing Physician Notes Attending attestation Pt seen and examined in concert with Dr. Gee. In agreement with the documented findings as noted in the resident documentation with any exceptions or additions as noted here. Ongoing SOB predominantly with ambulation which is gradually improving. tolerating AC well at present. Agreeable to transitioning to home O2 for recovery. On examination, S1/S2 nl RRR no MCG. CTAB. Abd NT/ND BS+ve Acute pulmonary embolism with right heart strain in the setting of h/o breast Ca - transition today to apixaban with recommendation for lifetime treatment. 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 Home with home O2. Else see resident documentation as noted. Total attending physician time spent with this patient's care on the day of discharge: 35 minutes. Resident Activity Tracking Resident Involvement: Resident Care Provided Care Provided: Adult Hospital Medicine
--- NOTE | 2022-11-21 13:44 | Electrocardiogram Report ---
Test Reason : Blood Pressure : / mmHG Vent. Rate : 084 BPM Atrial Rate : 084 BPM P-R Int : 152 ms QRS Dur : 084 ms QT Int : 402 ms P-R-T Axes : 068 -53 -44 degrees QTc Int : 475 ms Normal sinus rhythm Left anterior fascicular block Abnormal ECG When compared with ECG of 18-NOV-2022 09:41, T wave inversion more evident in Anterior leads T wave inversion less evident in Lateral leads Confirmed by Robbi Chandler ([id number]) on 11/21/2022 1:43:50 PM Referred By: REFERRED SELF Confirmed By:Robbi Chandler
== END 2022-11-20 16:47 | disposition home or self-care (01) | DRG 175 ==
LOC: ED 09:30 → SUATTDRO 13:04 → 4W 13:04